=== PATIENT | male | born 1970 ===

== ENCOUNTER 2024-12-20 13:16 | Outpatient (CLI) | payer OTHER, SELFPAY ==
--- NOTE | 2024-12-20 11:15 | DI.RAD_ITS ---
Exam(s) XR KNEE RT 3V AP,LAT,MARCEL EXAM: XR KNEE RT 3V AP,LAT,MARCEL CLINICAL HISTORY: RIGHT KNEE PAIN. TECHNIQUE: 2D digital imaging was performed. Three views. COMPARISON: CR XR KNEE RIGHT 4 OR MORE VIEWS from 02/09/2024 FINDINGS: BONES: No acute fracture is present. No bony destructive lesion is seen. JOINTS: There is moderate narrowing of the medial femoral tibial joint which appears to have worsened when compared the previous exam. There is mild periarticular spurring. Spurring is also noted at the patellofemoral joint.. A small joint effusion is seen. SOFT TISSUE: Soon marginated calcification again noted anteriorly, and Hoffa's fat pad. Loose body seen posteriorly. 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 And joint space loose bodies. DATA REPOSITORY: RADIATION DOSE DELIVERED:
== END 2024-12-20 13:17 | disposition home or self-care (01) ==
LOC: DIORS 13:16
PROVIDERS: Visit Provider Student in an Organized Health Care Education/Training Program
DX: M25.561 Pain in right knee (principal); M17.11 Unilateral primary osteoarthritis, right knee
CPT/HCPCS: 99204; 73562

== ENCOUNTER → 2025-03-12 07:56 | Outpatient (BNVA) | payer OTHER, SELFPAY | PROVIDERS: Visit Provider Physician Assistant | DX: M17.11 Unilateral primary osteoarthritis, right knee (principal) | CPT/HCPCS: 20610; J1010 ==